=== PATIENT | male | born 1945 | race Caucasian/White ===

== ENCOUNTER 2016-07-30 00:07 | Emergency (ER) | payer MEDICARE ==
[~2016-07-30] VITALS: Ht 170.2 cm; Wt 90.7 kg
[~2016-07-30 00:07] MED LIST: LEVAQUIN500 MG PO; PREDNISONE 20MG20 MG PO; TESSALON PERLE100 MG PO
[2016-07-30] MEDS ORDERED: ASPIRIN 81MG TA81 MG PO (00:20)
--- NOTE | 2016-07-30 00:26 | Emergency Room Report ---
History of Present Illness Time Seen by MD Silva Presenting Problem in Triage Pt arrived:Wheelchair Presenting Problem:PT STS "I FEEL LIKE MY BREATHING IS BLOCKED. IT JUST STARTED THIS EVENING WHEN I LAID DOWN TO GO TO SLEEP. I FELT LIKE SOMETHING WAS BLOCKING MY AIR FLOW." PT RPTS SIMILAR EPISODE IN THE PAST. 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 PT DENIES CHEST PAIN. 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 N Clinical Suspician of Infection? N Mental Status: 1 - Regular (Normal Baseline) Sepsis Risk:Possible Sepsis Risk Have you (or family members/close friends) recently traveled outside the [place]? N If Yes, where/when: Have you had exposure to infectious disease within the past month? N TB? Other? Specify: Source patient, RN notes reviewed, family, old records Exam Limitations no limitations Comment pt with ant chest dyscomfort with lying down with no vomiting or fever - had stents last Cardiac Chest Pain Chest pain indicative of cardiac No Timing/Duration this evening Severity moderate ALLERGIES Uncoded Allergies: ATROVASTIN (07/02/15) Home Medications Active Scripts Levofloxacin (Levaquin 500MG) 500 MG PO DAILY #7 TAB Prov: 07/02/15 Prednisone (Prednisone 20MG) 20 MG PO BID #10 TAB Prov: 07/02/15 BENZONATATE (Benzonatate) 100 MG PO TID #15 CAP Prov: 07/02/15 Reported Medications ASPIRIN (Aspirin) 81 MG PO DAILY History Medical History General CAD? No Angina: No [place]: Yes Hypertension? Yes Hyperlipidemia? Yes CHF? No DVT? No PE? No COPD? No Asthma? No Anemia? No GERD? Yes Gastric ulcers? No GI Bleed? No Hernia? No Thyroid Problems? Yes Hypothyroidism? No CVA? No Seizures? No Diabetes? No Renal Insuffiency? No End Stage Renal Disease? No UTI? Yes Stones? No BPH? No GB Disease: No Nephritic Syndrome? No Asplenia? No Hepatitis? No Sickle Cell Disease? No Arthritis? No Migraines? No Cataracts? No Glaucoma? No MRSA? No HIV? No TB? No Anxiety? No Depression? No Cancer? No More? No Immunization Hx DT/Tetanus NOT SURE Flu NEVER Pneumonia NEVER Surgical Hx Previous Surgery?Y HEMORRHOIDECTOMY VASECTOMY CARDIAC STENT X 6 RIGHT EYE SURGERY Family History Family Hx Diabetes No CAD No Hypertension Yes Hyperlipidemia Yes Cancer No TB No Social History Smoking Hx Smoker: Former Smoker Tobacco: No Alcohol Alcohol: No Drugs none Review of Systems All Other Systems Reviewed and Negative Constitutional denies fever Eyes denies drainage ENT denies: ear pain, epistaxis, throat pain. Respiratory denies cough, shortness of breath, denies wheezing Cardiovascular see HPI, chest pain, denies palpitations, denies syncope Gastrointestinal denies diarrhea, denies vomiting Genitourinary denies: dysuria, frequency, hesitancy, hematuria. Musculoskeletal denies back pain, denies joint pain, denies joint swelling, denies neck pain Skin denies rash Psychiatric/Neurological denies seizure Physical Exam Vital Signs Vital Signs Date Time Temp Pulse Resp B/P Pulse O2 O2 Flow FiO2 Ox Delivery Rate 07/30 0211 98.7 75 18 105/62 97 07/30 0144 98.7 71 18 114/70 97 07/30 0120 83 18 141/89 98 07/30 0119 18 07/30 0030 18 97 07/30 0010 98.7 91 24 144/79 97 - WBC >12,000 or <4,000 or 10% bands? 2 or more SIRS Criteria Met? B/P:105/62 MAP:100 Creatinine >2.0? UA output<0.5ml/kg/hr for 2 hrs? Platelet count >100,000? Lactate >2.0mmol/1? INR >1.2 or PTT > than 60 sec? Evidence of Organ Dysfunction? Provider documented clinical suspician of infection? N Sepsis Criteria Count: 2 Sepsis Risk: Possible Sepsis Risk General Appearance no apparent distress Eye Exam - bilateral eye PERRL, bilateral eye EOMI Ear, Nose, Throat normal ENT inspection Neck supple Respiratory Status No: respiratory distress. Lung Sounds bilateral: lungs clear. 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 No Results/Orders Laboratory Tests 07/30/16 0211: Troponin I 0.14 H 07/30/16 0020: Sodium 135 L, Potassium 3.5, Chloride 102, Carbon Dioxide 20 L, BUN 21 H, Creatinine 1.3, Estimated Creat Clear 69, Estimated GFR (MDRD) 55, Glucose 90, Calcium 7.4 L, Total Bilirubin 1.0, AST 24, ALT 37, Alkaline Phosphatase 65, Creatine Kinase 146, CK-MB (CK-2) Rel Index 0.7, CK and CKMB Interp 1.0, Troponin I 0.15 H, Total Protein 7.3, Albumin 3.4, Globulin 3.9 H, Albumin/ Globulin Ratio 0.9 L, WBC 9.0, RBC 3.54 L, Hgb 11.3 L, Hct 32.4 L, MCV 91.6, RDW 15.3, Plt Count 257, MPV 6.4 L, Gran % 67.7, Gran # 6.1, Lymphocytes % 18.8 , Monocytes % 8.0, Eosinophils % 4.9, Basophils % 0.7, Lymphocytes # 1.7, Monocytes # 0.7, Eosinophils # 0.4, Basophils # 0.1, PUBS MCHC 34.6, MCH 31.7 H Current Medication Orders Sig/Mckenzie Start time Last Medication Dose Route Stop Time Status Admin Ketorolac 30 MG ONCE ONE 07/30 114 DC 07/30 Tromethamine IV 07/30 Ketorolac 0 .STK-MED ONE 07/30 114 DC Tromethamine .ROUTE Sodium Chloride 10 ML PRN PRN 07/30 14 AC IV 07/31 12 Orders Procedure Date/time Status TROPONIN I 07/30 209 Complete 12 LEAD EKG-DAVID (INITIAL) 07/30 13 Active CHEST-PORTABLE 07/30 12 Active IV SALINE LOCK 07/30 12 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 of ischemic chgs XRAY/CT/US XRAY/CT/US XRAY chest XR interpretation by reviewed by me Xray Results abnormal (cm) Departure Departure Time of Disposition 023 Disposition DC Home or Self Care(routine) Clinical Impression Primary Impression: Chest pain of pericarditis Condition STABLE Patient Instructions DI for Atypical Chest Pain Additional Instructions fluids and resume meds Discharge Counseling Counseled pt/family regarding diagnosis, test results, follow up needs ED Critical Care Critical Care No at 0235
[2016-07-30 00:35] LABS: LYMPH # 1.7 K/mm3 (0.7-4.5); LYMPH % 18.8 % (10-50)
[2016-07-30 00:37] LABS: HEMOGLOBIN 11.3 g/dL (14.1-18.0)
[2016-07-30 02:50] VITALS: BP 114/67
--- NOTE | 2016-07-30 09:47 | RADIOLOGY REPORT PS360 ---
CHEST-PORTABLE COMPARISON: PA and lateral chest 07/02/2015 HISTORY: Shortness of breath TECHNIQUE: Oral upright chest FINDINGS: The lung hameed are well expanded. There is no definite pneumonic infiltrate seen and is no pleural fluid. There is mild to moderate generalized cardiomegaly however is no evidence of failure. Mild underlying emphysematous changes seen. There are monitor lines overlying the chest. IMPRESSION: Moderate cardiomegaly, no acute chest pathology noted
== END 2016-07-30 02:51 | disposition home or self-care (01) ==
LOC: ER 00:07
PROVIDERS: Emergency Medicine
DX: I30.9 Acute pericarditis, unspecified (principal); R07.89 Other chest pain; I10 Essential (primary) hypertension; K21.9 Gastro-esophageal reflux disease without esophagitis

== ENCOUNTER 2017-01-02 07:22 | Emergency (ER) | payer MEDICARE ==
[~2017-01-02] VITALS: Ht 170.2 cm; Wt 90.7 kg
[~2017-01-02 07:22] MED LIST changes: +ASPIRIN 81MG TA81 MG PO; +BUSPIRONE 5MG TA5 MG PO; +CIPRO 500MG TA500 MG PO
[2017-01-02 07:44] LABS: HEMOGLOBIN 11.8 g/dL (14.1-18.0); LYMPH # 1.3 K/mm3 (0.7-4.5); LYMPH % 14.1 % (10-50)
--- NOTE | 2017-01-02 08:22 | RADIOLOGY REPORT PS360 ---
CHEST(2 VIEWS-NOT PORTABLE) HISTORY: SOA ORDERING PHYSICIAN: Amanda Tracy MD PATIENT AGE: 71 years COMPARISON: 12/20/2016 FINDINGS: There is cardiomegaly without failure. Coronary artery calcification and/or stent noted. Mild pleural thickening present along the left chest wall laterally unchanged and may be due to pleural lipomatosis. No lobar consolidation or collapse. No acute bony anomalies. IMPRESSION: 1. Cardiomegaly, no change with no acute finding
[2017-01-02] MEDS ORDERED: ALBUTEROL-1 PUFF/14. IN (10:11)
[2017-01-02] MEDS ORDERED: PROVENTIL0.09 MG/A1 IH (10:11)
--- NOTE | 2017-01-02 10:11 | Emergency Room Report ---
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 N Clinical Suspician of Infection? N Mental Status: 1 - Regular (Normal Baseline) Sepsis Risk:Low Sepsis Risk Have you (or family members/close friends) recently traveled outside the [place]? N If Yes, where/when: Have you had exposure to infectious disease within the past month? N TB? Other? Specify: Mr. Jackson 71 years old white male who has a history of chronic obstructive pulmonary disease, he uses an inhaler. He started developing shortness of breath with 1:00 AM most on the RIGHT side. He ran out of inhalers and came to the ED. He denies having palpitations back pain nausea vomiting. He denies having chest pain but admits for cough productive with no fever or chills. He denies smoking but admit for a second hand smoke by his . He he underwent cardiac cath and stenting at the [place] and he is currently on aspirin and berlinta. Source patient, RN notes reviewed, Dr. Pablo. ALLERGIES Coded Allergies: atorvastatin (Mild, 12/20/16) Home Medications Active Scripts Levofloxacin (Levaquin 500MG) 500 MG PO DAILY #7 TAB Prov: 07/02/15 Prednisone (Prednisone 20MG) 20 MG PO BID #10 TAB Prov: 07/02/15 BENZONATATE (Benzonatate) 100 MG PO TID #15 CAP Prov: 07/02/15 Ciprofloxacin HCl (Cipro 500MG TAB) 500 MG PO BID #14 TAB Prov: 12/21/16 Buspirone Hcl (Buspirone 5MG) 5 MG PO BIDP PRN anxiety #14 TAB Prov: 12/20/16 Reported Medications ASPIRIN (Aspirin) 81 MG PO DAILY History Medical History General CAD? No Angina: No [place]: Yes Hypertension? Yes Hyperlipidemia? Yes CHF? No DVT? No PE? No COPD? No Asthma? No Anemia? No GERD? Yes Gastric ulcers? No GI Bleed? No Hernia? No Thyroid Problems? Yes Hypothyroidism? No CVA? No Seizures? No Diabetes? No Renal Insuffiency? No End Stage Renal Disease? No UTI? Yes Stones? No BPH? No GB Disease: No Nephritic Syndrome? No Asplenia? No Hepatitis? No Sickle Cell Disease? No Arthritis? No Migraines? No Cataracts? No Glaucoma? No MRSA? No HIV? No TB? No Anxiety? No Depression? No Cancer? No More? No Immunization Hx DT/Tetanus NOT SURE Flu NEVER Pneumonia NEVER Surgical Hx Previous Surgery?Y HEMORRHOIDECTOMY VASECTOMY CARDIAC STENT X 6 RIGHT EYE SURGERY Family History Family Hx Diabetes No CAD No Hypertension Yes Hyperlipidemia Yes Cancer No TB No Social History Smoking Hx Smoker: Never Smoker Tobacco: No Packs/day N/A Alcohol Alcohol: No Review of Systems All Other Systems Reviewed and Negative Constitutional no symptoms reported Eyes no symptoms reported ENT no symptoms reported. Respiratory see HPI, shortness of breath (on the RIGHT side) Cardiovascular no symptoms reported (denies chest pain.) Gastrointestinal no symptoms reported Genitourinary no symptoms reported. Musculoskeletal no symptoms reported Skin no symptoms reported Psychiatric/Neurological no symptoms reported Physical Exam Vital Signs Vital Signs Date Time Temp Pulse Resp B/P Pulse O2 O2 Flow FiO2 Ox Delivery Rate 01/02 1123 97.8 68 20 132/84 96 01/02 1015 97.8 68 20 131/80 96 01/02 0925 64 20 131/74 96 01/02 0727 97.8 71 20 148/88 98 Strong smoke smell and the patient admits that his smokes. (Malaika INIGUEZ,[facility]) - WBC >12,000 or <4,000 or 10% bands? 2 or more SIRS Criteria Met? B/P:131/74 MAP:108 Creatinine >2.0? UA output<0.5ml/kg/hr for 2 hrs? Platelet count >100,000? Lactate >2.0mmol/1? INR >1.2 or PTT > than 60 sec? Evidence of Organ Dysfunction? Provider documented clinical suspician of infection? N Sepsis Criteria Count: 1 Sepsis Risk: Low Sepsis Risk General Appearance normal appearance, WD/WN Eye Exam - bilateral eye normal exam, bilateral eye PERRL, bilateral eye EOMI Ear, Nose, Throat hearing grossly normal, normal ENT inspection Neck normal inspection, non-tender, supple, full range of motion Respiratory Status Yes: trachea midline, chest symmetrical, non tender chest. No: respiratory distress. Lung Sounds bilateral: normal breath sounds, lungs clear. 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 No Results/Orders Laboratory Tests 01/02/17 1015: ABG pH 7.47 H, ABG pCO2 (Temp Corrct 29.3 L, ABG pO2 (Temp Correct 90.3, ABG HCO3 20.8 L, ABG Total CO2 21.7 L, ABG O2 Sat (Calculated) 96.6, ABG Base Excess -2.8 L, Heriberto Test ACCEPTABLE, Blood Gas Comments RIGHT RADIAL 01/02/17 0730: Creatine Kinase 89, CK-MB (CK-2) Rel Index 0.6, CK and CKMB Interp < 0.5, Troponin I < 0.02 01/02/17 0730: B-Natriuretic Peptide 139 H, D-Dimer 928 *H 01/02/17 0730: Sodium 140, Potassium 3.5, Chloride 104, Carbon Dioxide 27, BUN 15, Creatinine 1.1, Estimated Creat Clear 81, Estimated GFR (MDRD) 66, Glucose 104, Calcium 8.8 , Total Bilirubin 0.6, AST 19, ALT 24, Alkaline Phosphatase 91, Total Protein 7.8, Albumin 4.0, Globulin 3.8 H, Albumin/Globulin Ratio 1.1, PT 10.2, INR 0.94 , APTT 25.4, WBC 8.8, RBC 4.12 L, Hgb 11.8 L, Hct 36.2 L, MCV 87.8, RDW 16.7, Plt Count 327, MPV 7.7, Gran % 73.3, Gran # 6.5, Lymphocytes % 14.1, Monocytes % 5.9, Eosinophils % 5.8, Basophils % 0.8, Lymphocytes # 1.3, Monocytes # 0.5, Eosinophils # 0.5 H, Basophils # 0.1, PUBS MCHC 32.7, MCH 28.7 Current Medication Orders Sig/Mckenzie Start time Last Medication Dose Route Stop Time Status Admin Iopamidol 75 ML ONCE ONE 01/02 1045 DC 01/02 IV 01/02 1046 1042 Sodium Chloride 10 ML ONCE ONE 01/02 1045 DC 01/02 IV 01/02 1046 1042 Albuterol/Ipratropium 3 ML ONCE ONE 01/02 1000 DC 01/02 INH 01/02 1001 1010 Pantoprazole Sodium 40 MG ONCE ONE 01/02 1000 DC IV 01/02 1001 Sodium Chloride 10 ML ONCE ONE 01/02 1000 DC IV 01/02 1001 Albuterol/Ipratropium 0 .STK-MED ONE 01/02 0956 DC INH Albuterol/Ipratropium 0 .STK-MED ONE 01/02 0939 DC INH Albuterol/Ipratropium 3 ML ONCE ONE 01/02 0900 DC 01/02 INH 01/02 0901 0905 Sodium Chloride 10 ML PRN PRN 01/02 0745 DCD IV 01/03 0734 Orders Procedure Date/time Status DIET-NOTHING BY MOUTH 01/02 L Active RT Aerosol Treatment, Provide 01/02 1126 Active RT Aerosol Treatment, Provide 01/02 1126 Active RT REQUEST DUONEB 01/[address] CHEST W/PE PROTOCOL REQ 01/02 0954 Active PARTIAL THROMBOPLASTIN TIME 01/02 0954 Complete PROTHROMBIN TIME 01/02 0954 Complete D-DIMER 01/02 0920 Complete BRAIN NATRIURETIC PEPTIDE 01/02 0920 Complete RT REQUEST DUONEB 01/02 0855 Active CARDIAC ENZYMES 01/02 0801 Complete ELECTROCARDIOGRAM REQUEST 01/02 0734 Active IV SALINE LOCK 01/02 0734 Active CBC WITH AUTO DIFF 01/02 0734 Complete CHEM 12 PROFILE 01/02 0734 Complete 12 LEAD EKG-BESSON (INITIAL) 01/02 0730 Active XRAY/CT/US XRAY/CT/US XRAY chest XR interpretation by reviewed by me, discussed w/radiologist Xray Results no infiltrates Comment Cardiomegaly without infiltrates. Departure Departure Time of Disposition 1005 Disposition DC Home or Self Care(routine) Clinical Impression Primary Impression: COPD (chronic obstructive pulmonary disease) Secondary Impressions: CAD (coronary artery disease), Celiac artery stenosis, Non-compliance Condition STABLE Referrals Peter Pablo MD Additional Instructions Mr jackson told me that he sees Dr. Pablo, so I called Dr. Pablo. I discussed with about Mr. Jackson and Dr Pablo told me that the patient follows up with the [place] and he shows up in his office. Upon reevaluation of the patient felt much better. Mr Jackson acknoledge the fact that he never shows up for Dr. Pablo. He requested a refill on his inhaler. I informant him to avoid secondhand smoke from his . And to contact the [place] for a lung specialist appointment. ADDENDUM I CALLED MR JACKSON TO DISCUSS HIS CT FINDINGS OF 50% CELIAC ARTERY STENOSIS. HE WILL RETURN TO TAKE HIS REPORT TO HIS PCP AT THE [facility]. DR. DAI Discharge Counseling Counseled pt/family regarding diagnosis, test results, medications/RX, home care, follow up needs Prescriptions Current Visit Scripts ALBUTEROL-IPRATROPIUM (Combivent Inhaler) 1 PUFFS IN Q12 #1 INH ALBUTEROL (Proventil Hfa Inhaler) 1-2 PUFF IH Q4-6H PRN #1 CAN Ref 6 ED Critical Care Critical Care No If Critical Care minutes are documented, the time involved in the performance of seperately reportable procedures was not counted toward critical care time documented. I directly delivered medical care to this critically ill and/or injured patient. Timely evaluation and treatment was necessary to address the significant organ system(s) dysfunction present in this patient. at 1151
--- NOTE | 2017-01-02 10:11 | Emergency Room Report ---
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 N Clinical Suspician of Infection? N Mental Status: 1 - Regular (Normal Baseline) Sepsis Risk:Low Sepsis Risk Have you (or family members/close friends) recently traveled outside the [place]? N If Yes, where/when: Have you had exposure to infectious disease within the past month? N TB? Other? Specify: Mr. Jackson 71 years old white male who has a history of chronic obstructive pulmonary disease, he uses an inhaler. He started developing shortness of breath with 1:00 AM most on the RIGHT side. He ran out of inhalers and came to the ED. He denies having palpitations back pain nausea vomiting. He denies having chest pain but admits for cough productive with no fever or chills. He denies smoking but admit for a second hand smoke by his . He he underwent cardiac [facility] and he is currently on aspirin and berlinta. Source patient, RN notes reviewed, Dr. Pablo. ALLERGIES Coded Allergies: atorvastatin (Mild, 12/20/16) Home Medications Active Scripts Levofloxacin (Levaquin 500MG) 500 MG PO DAILY #7 TAB Prov: 07/02/15 Prednisone (Prednisone 20MG) 20 MG PO BID #10 TAB Prov: 07/02/15 BENZONATATE (Benzonatate) 100 MG PO TID #15 CAP Prov: 07/02/15 Ciprofloxacin HCl (Cipro 500MG TAB) 500 MG PO BID #14 TAB Prov: 12/21/16 Buspirone Hcl (Buspirone 5MG) 5 MG PO BIDP PRN anxiety #14 TAB Prov: 12/20/16 Reported Medications ASPIRIN (Aspirin) 81 MG PO DAILY History Medical History General CAD? No Angina: No [place]: Yes Hypertension? Yes Hyperlipidemia? Yes CHF? No DVT? No PE? No COPD? No Asthma? No Anemia? No GERD? Yes Gastric ulcers? No GI Bleed? No Hernia? No Thyroid Problems? Yes Hypothyroidism? No CVA? No Seizures? No Diabetes? No Renal Insuffiency? No End Stage Renal Disease? No UTI? Yes Stones? No BPH? No GB Disease: No Nephritic Syndrome? No Asplenia? No Hepatitis? No Sickle Cell Disease? No Arthritis? No Migraines? No Cataracts? No Glaucoma? No MRSA? No HIV? No TB? No Anxiety? No Depression? No Cancer? No More? No Immunization Hx DT/Tetanus NOT SURE Flu NEVER Pneumonia NEVER Surgical Hx Previous Surgery?Y HEMORRHOIDECTOMY VASECTOMY CARDIAC STENT X 6 RIGHT EYE SURGERY Family History Family Hx Diabetes No CAD No Hypertension Yes Hyperlipidemia Yes Cancer No TB No Social History Smoking Hx Smoker: Never Smoker Tobacco: No Packs/day N/A Alcohol Alcohol: No Review of Systems All Other Systems Reviewed and Negative Constitutional no symptoms reported Eyes no symptoms reported ENT no symptoms reported. Respiratory see HPI, shortness of breath (on the RIGHT side) Cardiovascular no symptoms reported (denies chest pain.) Gastrointestinal no symptoms reported Genitourinary no symptoms reported. Musculoskeletal no symptoms reported Skin no symptoms reported Psychiatric/Neurological no symptoms reported Physical Exam Vital Signs Vital Signs Date Time Temp Pulse Resp B/P Pulse O2 O2 Flow FiO2 Ox Delivery Rate 01/02 1123 97.8 68 20 132/84 96 01/02 1015 97.8 68 20 131/80 96 01/02 0925 64 20 131/74 96 01/02 0727 97.8 71 20 148/88 98 Strong smoke smell and the patient admits that his smokes. (Malaika INIGUEZ,[facility]) - WBC >12,000 or <4,000 or 10% bands? 2 or more SIRS Criteria Met? B/P:131/74 MAP:108 Creatinine >2.0? UA output<0.5ml/kg/hr for 2 hrs? Platelet count >100,000? Lactate >2.0mmol/1? INR >1.2 or PTT > than 60 sec? Evidence of Organ Dysfunction? Provider documented clinical suspician of infection? N Sepsis Criteria Count: 1 Sepsis Risk: Low Sepsis Risk General Appearance normal appearance, WD/WN Eye Exam - bilateral eye normal exam, bilateral eye PERRL, bilateral eye EOMI Ear, Nose, Throat hearing grossly normal, normal ENT inspection Neck normal inspection, non-tender, supple, full range of motion Respiratory Status Yes: trachea midline, chest symmetrical, non tender chest. No: respiratory distress. Lung Sounds bilateral: normal breath sounds, lungs clear. Cardiovascular normal exam, regular rate/rhythm, no peripheral edema, no gallop, no JVD, no murmur, no rub, normal peripheral pulses Peripheral Pulses Pulses normal Yes Gastrointestinal normal bowel sounds, normal exam, non tender, soft, no organomegaly Back normal inspection, no CVA tenderness, no vertebral tenderness Extremities no edema Neurologic alert, stacker tender II-XII nml as tested, normal exam, oriented x 3 Reflexes Reflexes normal Yes Skin intact, normal color, warm/dry Medical Decision Making LABS/Meds/Orders Pt receiving controlled substance in ED? No Results/Orders Laboratory Tests 01/02/17 1015: ABG pH 7.47 H, ABG pCO2 (Temp Corrct 29.3 L, ABG pO2 (Temp Correct 90.3, ABG HCO3 20.8 L, ABG Total CO2 21.7 L, ABG O2 Sat (Calculated) 96.6, ABG Base Excess -2.8 L, Heriberto Test ACCEPTABLE, Blood Gas Comments RIGHT RADIAL 01/02/17 0730: Creatine Kinase 89, CK-MB (CK-2) Rel Index 0.6, CK and CKMB Interp < 0.5, Troponin I < 0.02 01/02/17 0730: B-Natriuretic Peptide 139 H, D-Dimer 928 *H 01/02/17 0730: Sodium 140, Potassium 3.5, Chloride 104, Carbon Dioxide 27, BUN 15, Creatinine 1.1, Estimated Creat Clear 81, Estimated GFR (MDRD) 66, Glucose 104, Calcium 8.8 , Total Bilirubin 0.6, AST 19, ALT 24, Alkaline Phosphatase 91, Total Protein 7.8, Albumin 4.0, Globulin 3.8 H, Albumin/Globulin Ratio 1.1, PT 10.2, INR 0.94 , APTT 25.4, WBC 8.8, RBC 4.12 L, Hgb 11.8 L, Hct 36.2 L, MCV 87.8, RDW 16.7, Plt Count 327, MPV 7.7, Gran % 73.3, Gran # 6.5, Lymphocytes % 14.1, Monocytes % 5.9, Eosinophils % 5.8, Basophils % 0.8, Lymphocytes # 1.3, Monocytes # 0.5, Eosinophils # 0.5 H, Basophils # 0.1, PUBS MCHC 32.7, MCH 28.7 Current Medication Orders Sig/Mckenzie Start time Last Medication Dose Route Stop Time Status Admin Iopamidol 75 ML ONCE ONE 01/02 1045 DC 01/02 IV 01/02 1046 1042 Sodium Chloride 10 ML ONCE ONE 01/02 1045 DC 01/02 IV 01/02 1046 1042 Albuterol/Ipratropium 3 ML ONCE ONE 01/02 1000 DC 01/02 INH 01/02 1001 1010 Pantoprazole Sodium 40 MG ONCE ONE 01/02 1000 DC IV 01/02 1001 Sodium Chloride 10 ML ONCE ONE 01/02 1000 DC IV 01/02 1001 Albuterol/Ipratropium 0 .STK-MED ONE 01/02 0956 DC INH Albuterol/Ipratropium 0 .STK-MED ONE 01/02 0939 DC INH Albuterol/Ipratropium 3 ML ONCE ONE 01/02 0900 DC 01/02 INH 01/02 0901 0905 Sodium Chloride 10 ML PRN PRN 01/02 0745 DCD IV 01/03 0734 Orders Procedure Date/time Status DIET-NOTHING BY MOUTH 01/02 L Active RT Aerosol Treatment, Provide 01/02 1126 Active RT Aerosol Treatment, Provide 01/02 1126 Active RT REQUEST DUONEB 01/[address] CHEST W/PE PROTOCOL REQ 01/02 0954 Active PARTIAL THROMBOPLASTIN TIME 01/02 0954 Complete PROTHROMBIN TIME 01/02 0954 Complete D-DIMER 01/02 0920 Complete BRAIN NATRIURETIC PEPTIDE 01/02 0920 Complete RT REQUEST DUONEB 01/02 0855 Active CARDIAC ENZYMES 01/02 0801 Complete ELECTROCARDIOGRAM REQUEST 01/02 0734 Active IV SALINE LOCK 01/02 0734 Active CBC WITH AUTO DIFF 01/02 0734 Complete CHEM 12 PROFILE 01/02 0734 Complete 12 LEAD EKG-BESSON (INITIAL) 01/02 0730 Active XRAY/CT/US XRAY/CT/US XRAY chest XR interpretation by reviewed by me, discussed w/radiologist Xray Results no infiltrates Comment Cardiomegaly without infiltrates. Departure Departure Time of Disposition 1005 Disposition DC Home or Self Care(routine) Clinical Impression Primary Impression: COPD (chronic obstructive pulmonary disease) Secondary Impressions: CAD (coronary artery disease), Celiac artery stenosis, Non-compliance Condition STABLE Referrals Peter Pablo MD Additional Instructions Mr jackson told me that he sees Dr. Pablo, so I called Dr. Pablo. I discussed with about Mr. Jackson and Dr Pablo told me that the patient follows up with the [facility] and he shows up in his office. Upon reevaluation of the patient felt much better. Mr Jackson acknoledge the fact that he never shows up for Dr. Pablo. He requested a refill on his inhaler. I informant him to avoid secondhand smoke from his . And to contact the [facility] for a lung specialist appointment. ADDENDUM I CALLED MR JACKSON TO DISCUSS HIS CT FINDINGS OF 50% CELIAC ARTERY STENOSIS. HE WILL RETURN TO TAKE HIS REPORT TO HIS PCP AT THE [facility]. DR. DAI Discharge Counseling Counseled pt/family regarding diagnosis, test results, medications/RX, home care, follow up needs Prescriptions Current Visit Scripts ALBUTEROL-IPRATROPIUM (Combivent Inhaler) 1 PUFFS IN Q12 #1 INH ALBUTEROL (Proventil Hfa Inhaler) 1-2 PUFF IH Q4-6H PRN #1 CAN Ref 6 ED Critical Care Critical Care No If Critical Care minutes are documented, the time involved in the performance of seperately reportable procedures was not counted toward critical care time documented. I directly delivered medical care to this critically ill and/or injured patient. Timely evaluation and treatment was necessary to address the significant organ system(s) dysfunction present in this patient. at 1151
[2017-01-02 10:44] LABS: ALLEN'S TEST ACCEPTABLE; ARTERIAL ABE -2.8 MMOL/L (-2.4-+2.3); ARTERIAL PO2 90.3 MMHG (80-100); ARTERIAL TCO2 21.7 MMOL/L (23-27); OXYGEN RO0M AIR
--- NOTE | 2017-01-02 10:55 | RADIOLOGY REPORT PS360 ---
CTA-CHEST HISTORY: SOA ON RT SIDE WITH ELEVATED D-DIMER ORDERING PHYSICIAN: Terrence Dai MD PATIENT AGE: 71 years TECHNIQUE: Helical acquisition obtained following the bolus administration of 60 mL of Isovue 370 followed by a saline bolus. Axial, sagittal, and coronal reformatted images are generated and reviewed. COMPARISON: 01/02/2017 FINDINGS: No evidence of pulmonary embolus. No aortic aneurysm or dissection. There are few scattered small lymph nodes in the mediastinum. No adenopathy. No mediastinal or hilar mass. There are mild atelectatic changes in the lung bases. No lobar consolidation or collapse. No suspicious nodules. There is extensive coronary artery calcification. Upper abdominal images show a couple of isodense liver lesions measuring up to 1 cm in the right hepatic lobe posteriorly unchanged may be due to small cysts. Incidental note made of narrowing of the celiac artery at the ostium of greater than 50%. IMPRESSION: 1. No acute finding. No evidence of pulmonary embolus or aortic aneurysm or dissection. 2. Coronary artery disease. 3. Greater than 50% stenosis of the ostium of the celiac artery
[2017-01-02 11:23] VITALS: BP 132/84
== END 2017-01-02 11:24 | disposition home or self-care (01) ==
LOC: ER 07:22
PROVIDERS: Emergency Medicine
DX: J44.9 Chronic obstructive pulmonary disease, unspecified (principal); Z77.22 Contact with and (suspected) exposure to environmental tobacco smoke (acute) (chronic); I25.10 Atherosclerotic heart disease of native coronary artery without angina pectoris; I77.4 Celiac artery compression syndrome; T48.6X6A Underdosing of antiasthmatics, initial encounter; Z91.128 Patient's intentional underdosing of medication regimen for other reason; Z95.5 Presence of coronary angioplasty implant and graft; I10 Essential (primary) hypertension; I25.2 Old myocardial infarction; Z79.82 Long term (current) use of aspirin; Z79.899 Other long term (current) drug therapy
CPT/HCPCS: Q9967

== ENCOUNTER 2017-01-09 00:36 | Emergency (ER) | payer MEDICARE ==
[~2017-01-09] VITALS: Ht 170.2 cm; Wt 91.6 kg
[~2017-01-09 00:36] MED LIST changes: +ALBUTEROL-1 PUFF/14. IN; +PROVENTIL0.09 MG/A1 IH
--- NOTE | 2017-01-09 00:48 | Emergency Room Report ---
History of Present Illness Time Seen by [id number] Presenting Problem in Triage Pt arrived:Walked Presenting Problem:C/O SHORTNESS OF BREATH. REPORTS MULTIPLE EPISODES OF SHORTNESS OF BREATH FOR A COUPLE OF WEEKS. REPORTS 6 STENTS IN JULY. 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 N Clinical Suspician of Infection? N Mental Status: 1 - Regular (Normal Baseline) Sepsis Risk:Low Sepsis Risk Have you (or family members/close friends) recently traveled outside the [place]? N If Yes, where/when: Have you had exposure to infectious disease within the past month? N TB? Other? Specify: Source patient, RN notes reviewed, family, old records Exam Limitations no limitations Comment feeling of sob with choking feeling in throat which preventedf him from using cpap Cardiac Chest Pain Chest pain indicative of cardiac No Timing/Duration this evening Severity moderate ALLERGIES Coded Allergies: atorvastatin (Mild, 12/20/16) Home Medications Active Scripts Buspirone Hcl (Buspirone 5MG) 5 MG PO BIDP PRN anxiety #14 TAB Prov: 12/20/16 ALBUTEROL-IPRATROPIUM (Combivent Inhaler) 1 PUFFS IN Q12 #1 INH Prov: 01/02/17 ALBUTEROL (Proventil Hfa Inhaler) 1-2 PUFF IH Q4-6H PRN #1 CAN Ref 6 Prov: 01/02/17 Reported Medications ASPIRIN (Aspirin) 81 MG PO DAILY ALLOPURINOL (Allopurinol 100MG) 100 MG PO DAILY Amlodipine Besylate (Amlodipine) 10 MG PO DAILY Chlorpheniramine Maleate (Aller-Chlor) 4 MG PO Q6HRS PRN ALLERGY FLUTICASONE PROPIONATE (Fluticasone 50MCG Nasal [place]) 2 SPRAY NA DAILY Isosorbide Mononitrate (Isosorbide Mononitrate ER) 30 MG PO DAILY Levothyroxine Sodium (Levothyroxine 0.112MG) 0.112 MG PO DAILY Lisinopril (Lisinopril 40MG) 40 MG PO DAILY Metoprolol Tartrate (Metoprolol 100MG) 50 MG PO BID POTASSIUM CHL (Potassium Chloride) 20 MEQ PO BID PRAVASTATIN SODIUM (Pravastatin Sodium) 40 MG PO QHS Ticagrelor (Brilinta) 90 MG PO BID CHOLECALCIFEROL (VITAMIN D3) (Vitamin D3) 1,000 IUNITS PO DAILY History Medical History General CAD? No Angina: No [place]: Yes Hypertension? Yes Hyperlipidemia? Yes CHF? No DVT? No PE? No COPD? No Asthma? No Anemia? No GERD? Yes Gastric ulcers? No GI Bleed? No Hernia? No Thyroid Problems? Yes Hypothyroidism? No CVA? No Seizures? No Diabetes? No Renal Insuffiency? No End Stage Renal Disease? No UTI? Yes Stones? No BPH? No GB Disease: No Nephritic Syndrome? No Asplenia? No Hepatitis? No Sickle Cell Disease? No Arthritis? No Migraines? No Cataracts? No Glaucoma? No MRSA? No HIV? No TB? No Anxiety? No Depression? No Cancer? No More? No Immunization Hx DT/Tetanus NOT SURE Flu NEVER Pneumonia NEVER Surgical Hx Previous Surgery?Y HEMORRHOIDECTOMY VASECTOMY CARDIAC STENT X 6 RIGHT EYE SURGERY Family History Family Hx Diabetes No CAD No Hypertension Yes Hyperlipidemia Yes Cancer No TB No Social History Smoking Hx Smoker: Former Smoker Tobacco: No Type Cigarettes Packs/day N/A Alcohol Alcohol: No Drugs none Review of Systems All Other Systems Reviewed and Negative Constitutional denies fever Eyes denies drainage ENT denies: ear discharge. Respiratory see HPI, denies cough, shortness of breath, denies wheezing Cardiovascular denies chest pain, denies palpitations, denies syncope Gastrointestinal denies diarrhea, denies vomiting Genitourinary denies: dysuria, frequency, hesitancy. Musculoskeletal denies back pain, denies joint pain, denies joint swelling, denies neck pain Skin denies rash Psychiatric/Neurological denies headache, denies seizure Physical Exam Vital Signs Vital Signs Date Time Temp Pulse Resp B/P Pulse O2 O2 Flow FiO2 Ox Delivery Rate 01/09 0203 61 20 127/82 95 01/09 0202 68 20 127/62 95 01/09 0125 64 18 132/67 93 01/09 0039 98.0 67 18 143/90 97 - WBC >12,000 or <4,000 or 10% bands? 2 or more SIRS Criteria Met? B/P:127/82 MAP:107 Creatinine >2.0? UA output<0.5ml/kg/hr for 2 hrs? Platelet count >100,000? Lactate >2.0mmol/1? INR >1.2 or PTT > than 60 sec? Evidence of Organ Dysfunction? Provider documented clinical suspician of infection? N Sepsis Criteria Count: 0 Sepsis Risk: Low Sepsis Risk General Appearance no apparent distress Eye Exam - bilateral eye PERRL, bilateral eye EOMI Ear, Nose, Throat normal ENT inspection Neck supple Respiratory Status No: respiratory distress. Lung Sounds bilateral: decreased breath sounds. 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 No Results/Orders Laboratory Tests 01/09/1754: B-Natriuretic Peptide 36 01/09/1754: Sodium 135 L, Potassium 3.4 L, Chloride 102, Carbon Dioxide 24, BUN 19 H, Creatinine 1.4 H, Estimated Creat Clear 65, Estimated GFR (MDRD) 50, Glucose 105, Calcium 8.9, Total Bilirubin 0.5, AST 20, ALT 22, Alkaline Phosphatase 92, Creatine Kinase 94, CK-MB (CK-2) Rel Index 0.5, CK and CKMB Interp < 0.5, Troponin I < 0.02, Total Protein 7.2, Albumin 3.7, Globulin 3.5 H, Albumin/ Globulin Ratio 1.1, WBC 8.7, RBC 3.88 L, Hgb 11.3 L, Hct 33.8 L, MCV 87.2, RDW 16.7, Plt Count 361, MPV 7.5, Gran % 63.3, Gran # 5.5, Lymphocytes % 19.1, Monocytes % 8.7, Eosinophils % 8.1, Basophils % 0.8, Lymphocytes # 1.7, Monocytes # 0.8, Eosinophils # 0.7 H, Basophils # 0.1, PUBS MCHC 33.5, MCH 29.2 Current Medication Orders Sig/Mckenzie Start time Last Medication Dose Route Stop Time Status Admin Famotidine 0 .STK-MED ONE 01/10 148 DC IV Metoclopramide HCl 0 .STK-MED ONE 01/10 148 DC .ROUTE Sodium Chloride 0 .STK-MED ONE 01/10 148 DC IV Famotidine 20 MG ONCE ONE 01/095 DC 01/09 IV 01/09 0146 0152 Metoclopramide HCl 10 MG ONCE ONE 01/095 DC 01/09 IVP 01/09 146 0152 Sodium Chloride 8 ML ONCE ONE 01/09 145 DC 01/09 IV 01/09 014 0152 Orders Procedure Date/time Status BRAIN NATRIURETIC PEPTIDE 01/09 0110 Complete ELECTROCARDIOGRAM REQUEST 01/09 004 Active CHEST-PORTABLE 01/09 004 Active IV SALINE LOCK 01/09 004 Active CBC WITH AUTO DIFF 01/09 004 Complete CARDIAC ENZYMES 01/09 004 Complete CHEM 12 PROFILE 01/09 0042 Complete CM/EKG CM/EKG EKG non-spec. ST/Twave chgs XRAY/CT/US XRAY/CT/US XRAY chest XR interpretation by reviewed by me Xray Results abnormal (cm) Departure Departure Time of Disposition 0209 Disposition DC Home or Self Care(routine) Clinical Impression Primary Impression: Acute dyspnea Condition STABLE Referrals Peter Pablo MD (Family) Patient Instructions DI for Shortness of Breath Additional Instructions see pcp for follow up Discharge Counseling Counseled pt/family regarding diagnosis, test results, follow up needs ED Critical Care Critical Care No at 0210
[2017-01-09] MEDS ORDERED: ALLOPURINOL100 M1 PO (00:49)
[2017-01-09] MEDS ORDERED: AMLODIPINE10 MG PO (00:52)
[2017-01-09] MEDS ORDERED: ALLER-CHLOR4 MG PO (00:53)
[2017-01-09] MEDS ORDERED: FLUTICASONE 50M16 GM (00:54)
[2017-01-09] MEDS ORDERED: ISOSORBIDE MONO30 MG PO (00:55)
[2017-01-09] MEDS ORDERED: LEVOTHYROXIN0.112 M1 PO (00:55)
[2017-01-09] MEDS ORDERED: METOPROLOL TAR100 MG PO (00:56)
[2017-01-09] MEDS ORDERED: LISINOPRIL40 MG PO (00:56)
[2017-01-09] MEDS ORDERED: POTASSIUM CHLO10 ME3 PO (00:57)
[2017-01-09] MEDS ORDERED: PRAVACHOL 40MG40 MG PO (00:58)
[2017-01-09] MEDS ORDERED: BRILINTA90 MG PO (00:59)
[2017-01-09] MEDS ORDERED: VITAMIN D1000 IU PO (00:59)
[2017-01-09 01:01] LABS: HEMOGLOBIN 11.3 g/dL (14.1-18.0); LYMPH # 1.7 K/mm3 (0.7-4.5); LYMPH % 19.1 % (10-50)
[2017-01-09 01:31] LABS: BUN 19 mg/dL (7-18)
[2017-01-09 01:34] LABS: GFR (ESTIMATED) 50 ML/MIN (>60)
[2017-01-09 02:18] VITALS: BP 173/69
--- NOTE | 2017-01-09 05:32 | RADIOLOGY REPORT PS360 ---
CHEST-PORTABLE HISTORY: Shortness of air SOA ORDERING PHYSICIAN: Amanda Tracy MD PATIENT AGE: 71 years COMPARISON: 01/02/2017 FINDINGS: There is cardiomegaly with low lung volumes. No lobar consolidation or collapse. No acute bony anomalies.. IMPRESSION: Cardiomegaly, no change with no acute finding.
== END 2017-01-09 02:18 | disposition home or self-care (01) ==
LOC: ER 00:36
PROVIDERS: Emergency Medicine
DX: R06.09 Other forms of dyspnea (principal); Z79.899 Other long term (current) drug therapy; I10 Essential (primary) hypertension; K21.9 Gastro-esophageal reflux disease without esophagitis; Z72.0 Tobacco use

== ENCOUNTER 2017-01-12 02:57 | Emergency (ER) | payer MEDICARE ==
[~2017-01-12] VITALS: Ht 170.2 cm; Wt 91.6 kg
[~2017-01-12 02:57] MED LIST changes: +ALLER-CHLOR4 MG PO; +ALLOPURINOL100 M1 PO; +AMLODIPINE10 MG PO; +BRILINTA90 MG PO; +FLUTICASONE 50M16 GM; +ISOSORBIDE MONO30 MG PO; +LEVOTHYROXIN0.112 M1 PO; +LISINOPRIL40 MG PO; +METOPROLOL TAR100 MG PO; +POTASSIUM CHLO10 ME3 PO; +PRAVACHOL 40MG40 MG PO; +VITAMIN D1000 IU PO
--- NOTE | 2017-01-12 03:38 | Emergency Room Report ---
History of Present Illness Time Seen by MD Khan Presenting Problem in Triage Pt arrived:Walked Presenting Problem:LOWER QUADRANT ABDOMINAL PAIN, WORSENING SINCE 1400. 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 N Clinical Suspician of Infection? N Mental Status: 1 - Regular (Normal Baseline) Sepsis Risk:Low Sepsis Risk Have you (or family members/close friends) recently traveled outside the [place]? N If Yes, where/when: Have you had exposure to infectious disease within the past month? N TB? Other? Specify: Source patient, RN notes reviewed, family, old records Exam Limitations no limitations Comment pt with lower abd pain since this pm with nausea but no fever/rash or diarrhea and no melena Cardiac Chest Pain Chest pain indicative of cardiac No Timing/Duration this evening Severity moderate ALLERGIES Coded Allergies: atorvastatin (Mild, 12/20/16) Home Medications Active Scripts Buspirone Hcl (Buspirone 5MG) 5 MG PO BIDP PRN anxiety #14 TAB Prov: 12/20/16 ALBUTEROL-IPRATROPIUM (Combivent Inhaler) 1 PUFFS IN Q12 #1 INH Prov: 01/02/17 ALBUTEROL (Proventil Hfa Inhaler) 1-2 PUFF IH Q4-6H PRN #1 CAN Ref 6 Prov: 01/02/17 Reported Medications ASPIRIN (Aspirin) 81 MG PO DAILY ALLOPURINOL (Allopurinol 100MG) 100 MG PO DAILY Amlodipine Besylate (Amlodipine) 10 MG PO DAILY Chlorpheniramine Maleate (Aller-Chlor) 4 MG PO Q6HRS PRN ALLERGY FLUTICASONE PROPIONATE (Fluticasone 50MCG Nasal [place]) 2 SPRAY NA DAILY Isosorbide Mononitrate (Isosorbide Mononitrate ER) 30 MG PO DAILY Levothyroxine Sodium (Levothyroxine 0.112MG) 0.112 MG PO DAILY Lisinopril (Lisinopril 40MG) 40 MG PO DAILY Metoprolol Tartrate (Metoprolol 100MG) 50 MG PO BID POTASSIUM CHL (Potassium Chloride) 20 MEQ PO BID PRAVASTATIN SODIUM (Pravastatin Sodium) 40 MG PO QHS Ticagrelor (Brilinta) 90 MG PO BID CHOLECALCIFEROL (VITAMIN D3) (Vitamin D3) 1,000 IUNITS PO DAILY History Medical History General CAD? No Angina: No [place]: Yes Hypertension? Yes Hyperlipidemia? Yes CHF? No DVT? No PE? No COPD? No Asthma? No Anemia? No GERD? Yes Gastric ulcers? No GI Bleed? No Hernia? No Thyroid Problems? Yes Hypothyroidism? No CVA? No Seizures? No Diabetes? No Renal Insuffiency? No End Stage Renal Disease? No UTI? Yes Stones? No BPH? No GB Disease: No Nephritic Syndrome? No Asplenia? No Hepatitis? No Sickle Cell Disease? No Arthritis? No Migraines? No Cataracts? No Glaucoma? No MRSA? No HIV? No TB? No Anxiety? No Depression? No Cancer? No More? No Immunization Hx DT/Tetanus NOT SURE Flu NEVER Pneumonia NEVER Surgical Hx Previous Surgery?Y HEMORRHOIDECTOMY VASECTOMY CARDIAC STENT X 6 RIGHT EYE SURGERY Family History Family Hx Diabetes No CAD No Hypertension Yes Hyperlipidemia Yes Cancer No TB No Social History Smoking Hx Smoker: Former Smoker Tobacco: No Type Cigarettes Packs/day N/A Alcohol Alcohol: No Drugs none Review of Systems All Other Systems Reviewed and Negative Constitutional denies fever Eyes denies drainage ENT denies: ear discharge, epistaxis, throat pain. Respiratory denies cough, denies shortness of breath, denies wheezing Cardiovascular denies chest pain, denies syncope Gastrointestinal see HPI, abdominal pain, denies diarrhea, nausea, denies vomiting Genitourinary denies: dysuria, frequency, hesitancy, hematuria. Musculoskeletal denies back pain, denies joint pain, denies joint swelling, denies neck pain Skin denies rash Psychiatric/Neurological denies headache, denies seizure Physical Exam Vital Signs Vital Signs Date Time Temp Pulse Resp B/P Pulse O2 O2 Flow FiO2 Ox Delivery Rate 01/12 0434 97.9 58 21 111/17 96 01/12 0357 58 24 106/36 96 01/12 0305 97.9 64 17 122/75 96 - WBC >12,000 or <4,000 or 10% bands? 2 or more SIRS Criteria Met? B/P:106/ MAP:90 Creatinine >2.0? UA output<0.5ml/kg/hr for 2 hrs? Platelet count >100,000? Lactate >2.0mmol/1? INR >1.2 or PTT > than 60 sec? Evidence of Organ Dysfunction? Provider documented clinical suspician of infection? N Sepsis Criteria Count: 0 Sepsis Risk: Low Sepsis Risk General Appearance no apparent distress Eye Exam - bilateral eye PERRL, bilateral eye EOMI Ear, Nose, Throat normal ENT inspection Neck supple Respiratory Status No: respiratory distress. 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 No Results/Orders Laboratory Tests 01/12/17 0325: Sodium 136, Potassium 3.9, Chloride 102, Carbon Dioxide 24, BUN 20 H, Creatinine 1.3, Estimated Creat Clear 70, Estimated GFR (MDRD) 55, Glucose 105, Calcium 9.1, Total Bilirubin 0.6, AST 17, ALT 24, Alkaline Phosphatase 95, Total Protein 7.2, Albumin 4.0, Globulin 3.2, Albumin/Globulin Ratio 1.3, Amylase 62, Lipase 173, WBC 7.6, RBC 3.76 L, Hgb 10.6 L, Hct 33.2 L, MCV 88.3, RDW 16.4, Plt Count 345, MPV 7.8, Gran % 64.4, Gran # 4.9, Lymphocytes % 16.6, Monocytes % 10.2 H, Eosinophils % 8.0, Basophils % 0.8, Lymphocytes # 1.3, Monocytes # 0.8, Eosinophils # 0.6 H, Basophils # 0.1, PUBS MCHC 32.1, MCH 28.3, Urine Color YELLOW, Urine Appearance CLEAR, Urine pH 5.5, Ur Specific [place] <= 1.005, Urine Protein NEGATIVE, Urine Ketones NEGATIVE, Urine Blood NEGATIVE, Urine Nitrate NEGATIVE, Urine Bilirubin NEGATIVE, Urine Urobilinogen 0.2, Ur Leukocyte Esterase NEGATIVE, Amorphous Sediment TRACE, Urine Glucose NEGATIVE Current Medication Orders Sig/Mckenzie Start time Last Medication Dose Route Stop Time Status Admin Ondansetron HCl 4 MG ONCE ONE 01/12 415 DC 01/12 IV 01/12 Ondansetron HCl 0 .STK-MED ONE 01/12 035 DC .ROUTE Sodium Chloride 1,000 ML .STK-MED ONE 01/12 0336 DC IV Sodium Chloride 10 ML PRN PRN 01/12 033 AC 01/12 IV 01/13 0316 0430 Orders Procedure Date/time Status DIET-NOTHING BY MOUTH 01/[address] ABD & PELVIS W/O CONTRAST 01/[address] ABD/PELVIS REQ 01/13 316 Active IV SALINE LOCK 01/13 316 Active URINALYSIS/COMPLETE 01/13 316 Complete LIPASE 01/13 316 Complete CBC WITH AUTO DIFF 01/13 316 Complete CHEM 12 PROFILE 01/13 316 Complete AMYLASE 01/13 316 Complete XRAY/CT/US XRAY/CT/US CT abdomen, pelvis CT interpretation by discussed w/radiologist Time results known: 511 CT Results abnormal (see report) Departure Departure Time of Disposition 511 Disposition DC Home or Self Care(routine) Clinical Impression Primary Impression: Abdominal pain Qualifiers: Abdominal location: lower abdomen, unspecified Qualified Code: R10.30 - Lower abdominal pain, unspecified Secondary Impressions: AAA (abdominal aortic aneurysm) Qualifiers: Presence of rupture: without rupture Qualified Code: I71.4 - Abdominal aortic aneurysm, without rupture Condition STABLE Referrals Peter Pablo MD (Family) Patient Instructions DI for Abdominal Pain-Adult Additional Instructions fluids and see pcp for follow up Discharge Counseling Counseled pt/family regarding diagnosis, test results, medications/RX, follow up needs ED Critical Care Critical Care No at 0513
[2017-01-12 03:42] LABS: HEMOGLOBIN 10.6 g/dL (14.1-18.0); LYMPH # 1.3 K/mm3 (0.7-4.5); LYMPH % 16.6 % (10-50)
[2017-01-12 03:43] LABS: URINE BILIRUBIN - DIPSTICK NEGATIVE (NEG); URINE BLOOD NEGATIVE (NEG)
[2017-01-12 05:23] VITALS: BP 109/59
--- NOTE | 2017-01-12 07:25 | RADIOLOGY REPORT PS360 ---
CT ABD PELVIS W/O CONTRAST CLINICAL INDICATION: Lower abdominal pain ABD PAIN ORDERING PHYSICIAN: Amanda Tracy MD PATIENT AGE: 71 years COMPARISON: 05/19/2010 TECHNIQUE: Axial images obtained with sagittal and coronal reformats. PROCEDURE: Oral Contrast: None IV Contrast: None . FINDINGS: There are coronary artery calcifications as well as a curvilinear density over the inferior aspect of the left atrium. Dependent changes are present in the lung bases. At least 2 isodensity is are present involving the liver one in the posterior segment of the right hepatic lobe at 11 mm and one in the central aspect of left hepatic lobe at 12 mm. The latter lesion was probably present on the previous exam slightly more prominent on today's study. The lesion in the right hepatic lobe is not identified on the previous study. These are indeterminate and follow-up is recommended. No radiopaque gallstones. The spleen, adrenal glands, pancreas, and kidneys have an unremarkable nonacute appearance. No intestinal obstruction or free air. No evidence of appendicitis, diverticulitis, There is mild fusiform dilatation of the in the renal abdominal aorta at 2.7 cm. No acute bony anomalies. IMPRESSION: 1. No acute finding. 2. At least 2 hypodensities of the liver which are nonspecific. Suggest follow-up to confirm stability 3. Mild dilatation of the infrarenal abdominal aorta at 2.6 cm
== END 2017-01-12 05:35 | disposition home or self-care (01) ==
LOC: ER 02:57
PROVIDERS: Emergency Medicine
DX: R10.30 Lower abdominal pain, unspecified (principal); I71.4 Abdominal aortic aneurysm, without rupture; Z88.8 Allergy status to other drugs, medicaments and biological substances; E78.5 Hyperlipidemia, unspecified; K21.9 Gastro-esophageal reflux disease without esophagitis; Z87.891 Personal history of nicotine dependence; Z79.82 Long term (current) use of aspirin
CPT/HCPCS: J2405